=== PATIENT | female | born 1950 | race Caucasian/White ===

== ENCOUNTER 2018-07-10 11:48 | Emergency (ER) | payer MEDICARE, BC ==
[2018-07-10 11:57] VITALS: BP 140/84
--- NOTE | 2018-07-10 12:36 | UC ---
Skin Complaint HPI - HPI Summary HPI Summary: 2 DAYS AGO PATIENT FELT WHAT SHE THOUGHT WAS A MOLE ON HER RIGHT HIP. TODAY HER LOOKED AT IT AND STATED IT WAS A TICK. PATIENT IS HERE FOR REMOVAL. IT IS ENGORGED. - History of Current Complaint Chief Complaint: [facility] Time Seen by Provider: 07/10/18 12:15 Stated Complaint: TICK ON BOTTOM Hx Obtained From: Patient Onset/Duration: Lasting Days, Still Present Skin Exposure Onset/Duration: Days Ago Timing: Constant Onset Severity: Mild Current Severity: Mild Pain Intensity: 0 Pain Scale Used: 0-10 Numeric Location: Discrete - RIGHT HIP Character: Redness Aggravating Factor(s): Nothing Alleviating Factor(s): Nothing - Allergy/Home Medications Allergies/Adverse Reactions: Allergies Allergy/AdvReac Type Severity Reaction Status Date / Time No Known Allergies Allergy Verified 07/10/18 11:57 PMH/Surg Hx/FS Hx/Imm Hx Endocrine History: Hypothyroidism Other Cancer History: THYROID CANCER - Surgical History Surgical History: Yes Surgery Procedure, Year, and Place: THYROIDECTOMY (FULL) ,HYSTERECTOMY - Social History Alcohol Use: Occasionally Substance Use Type: None Smoking Status (MU): Never Smoked Tobacco - Immunization History Most Recent Tetanus Shot: September 2011 Review of Systems All Other Systems Reviewed And Are Negative: Yes Constitutional: Positive: Negative Skin: Positive: Other - TICK ATTACHED RIGHT HIP Respiratory: Positive: Negative Cardiovascular: Positive: Negative Gastrointestinal: Positive: Negative Musculoskeletal: Positive: Negative Neurological: Positive: Negative Physical Exam Triage Information Reviewed: Yes Appearance: Well-Appearing, No Pain Distress, Well-Nourished Vital Signs: Initial Vital Signs Temp 98.7 F 07/10/18 11:50 Pulse 75 07/10/18 11:50 Resp 18 07/10/18 11:50 BP 140/84 07/10/18 11:50 Pulse Ox 100 07/10/18 11:50 Vital Signs Reviewed: Yes Eyes: Positive: Conjunctiva Clear ENT: Positive: Hearing grossly normal Neck: Positive: Supple Respiratory: Positive: No respiratory distress, No accessory muscle use Cardiovascular: Positive: Pulses Normal Abdomen Description: Positive: Soft Musculoskeletal: Positive: No Edema Neurological: Positive: Alert Psychological: Positive: Age Appropriate Behavior Skin: Positive: Other - ENGORGED DEER TICK ATTACHED TO RIGHT HIP Course/Dx - Course Course Of Treatment: LYME DISEASE PEP PRESCRIBED TODAY (DOXY 200MG X 1). ENGORGED TICK REMOVED FROM RIGHT HIP BY MD WITHOUT DIFFICULTY USING A TICK TWISTER. COUNSELED PATIENT EXTENSIVELY ON RISKS OF DEVELOPING LYME DISEASE. KEEP THE AREA CLEAN AND BE VIGILANT OF SYMPTOMS OVER THE NEXT 4-6 WEEKS. - Diagnoses Provider Diagnosis: Tick bite with tick attached for 8 hours or longer Discharge - Sign-Out/Discharge Documenting (check all that apply): Patient Departure All imaging exams completed and their final reports reviewed: No Studies - Discharge Plan Condition: Stable Disposition: HOME Prescriptions: Doxycycline Monohydrate 2 cap PO ONCE #2 cap Patient Education Materials: Tick Bite (ED) Referrals: Dinesh Zimmerman MD [Primary Care Provider] - If Needed Additional Instructions: TICK BITE PROPHYLAXIS You received a prescription for 200mg of doxycycline for prophylaxis against Lyme disease. The Infectious Disease Society of [place] (IDSA) does not generally recommend antimicrobial prophylaxis for prevention of Lyme disease after a recognized tick bite. However, in areas that are highly endemic for Lyme disease, a single dose of doxycycline may be offered to adult patients (200 mg) who are not and to children older than 8 years of age (4 mg/kg up to a maximum dose of 200 mg) when all of the following circumstances exist: CRITERIA FOR RECEIVING PROPHYLACTIC TREATMENT FOR LYME DISEASE 1) TICK ATTACHED FOR AT LEAST 36 HRS 2) TICK IS AN ADULT OR [place] DEER TICK 3) YOU LIVE IN AN AREA WHERE LYME DISEASE IS PREVALENT (i.e., [place], [place], [place] , [place], [place], [place], [place], [place], [place], [place], [place], [place]) 4) YOU HAVE NO CONTRAINDICATION TO THE MEDICATION (DOXYCYCLINE) 5) PROPHYLAXIS IS BEGUN WITHIN 72 HRS OF TICK REMOVAL YOUR CHANCES OF DEVELOPING LYME DISEASE FROM THIS TICK ARE SMALL. HOWEVER, 1 TICK MEANS THERE MAY HAVE BEEN OTHER TICKS OF WHICH YOU WEREN'T AWARE. SO BE VIGILANT OF YOUR SYMPTOMS AND DON'T HESITATE TO GET SEEN AGAIN IF YOU DEVELOP UNEXPLAINED FEVER, HEADACHE, JOINT PAIN, BODY ACHES, RASH OR ANY OTHER CONCERNING SYMPTOMS. Antibiotic treatment following a tick bite is not recommended as a means to prevent anaplasmosis, babesiosis, ehrlichiosis, or [place] spotted fever. There is no evidence this practice is effective, and it may simply delay onset of disease. Instead, persons who experience a tick bite should be alert for symptoms suggestive of tickborne illness and consult a physician if fever, rash, headache or other symptoms of concern develop. - [place] Disposition and Condition Condition: STABLE Disposition: Home
== END 2018-07-10 12:35 | disposition home or self-care (01) ==
LOC: UCEAST 11:48
DX: S70.261A Insect bite (nonvenomous), right hip, initial encounter (principal); W57.XXXA Bitten or stung by nonvenomous insect and other nonvenomous arthropods, initial encounter; Y92.89 Other specified places as the place of occurrence of the external cause; E03.9 Hypothyroidism, unspecified; Z85.850 Personal history of malignant neoplasm of thyroid
CPT/HCPCS: 99212; G0463

== ENCOUNTER 2023-02-03 13:08 | Observation (INO) ==
[~2023-02-03 13:08] MED LIST: Buffered Lidocaine 1% SYRIN 1 ml INTRADERM ONE; HYDROmorphone 1 MG/1 ML SYRINGE IV PRN; Lactated Ringers 1000 ml BAG 1,000 ML IV SCH; Lidocaine 2% PF 5 ML VIAL ONE; Naloxone 0.4 mg VIAL 0.4 mg/ml 1 ml VIAL IV PRN; Ondansetron 4 mg VIAL 2 MG/ML 2 ml VIAL IV PRN; Phenylephrine IV 10 MG/ML 1 ml VIAL ONE; Propofol 10 MG/ML 20 ML BTL ONE; Rocuronium 50 mg VIAL 10 mg/ml 5 ml VIAL (50 mg) ONE; fentaNYL 100 mcg/2 ml 50 MCG/ML VIAL IV PRN; fentaNYL 250 mcg/5 ml 50 MCG/ML 5 ml VIAL (250 MCG) ONE
[2023-02-03] MEDS ORDERED: ceFAZolin 2 GM PREMIX 2 GM/50 ML BAG ONE (13:43)
[2023-02-03] MEDS ORDERED: Midazolam 2 mg/2 ml VIAL 1 mg/ml 2 ml VIAL (2 mg) ONE ×2 (16:22→17:55)
[2023-02-03] MEDS ORDERED: Propofol 10 MG/ML 20 ML BTL ONE (17:55)
[2023-02-03] MEDS ORDERED: Lidocaine 2% PF 5 ML VIAL ONE (17:55)
[2023-02-03] MEDS ORDERED: Ondansetron 4 mg VIAL 2 MG/ML 2 ml VIAL ONE (17:55)
[2023-02-03] MEDS ORDERED: Phenylephrine IV 10 MG/ML 1 ml VIAL ONE (17:55)
[2023-02-03] MEDS ORDERED: Dexamethasone IV 4 MG/ML VIAL 1 ml VIAL ONE (17:55)
[2023-02-03] MEDS ORDERED: fentaNYL 100 mcg/2 ml 50 MCG/ML VIAL ONE (17:55)
[2023-02-03] MEDS ORDERED: Rocuronium 50 mg VIAL 10 mg/ml 5 ml VIAL (50 mg) ONE (17:59)
[2023-02-03] MEDS ORDERED: ROPIVACAINE 5 MG/ML 30 ML BTL (0.5%) ONE (18:04)
[2023-02-03] MEDS ORDERED: Lidocaine 1% w EPI 1:100,000 MDV 20 ML VIAL ONE (20:00)
[2023-02-03] MEDS ORDERED: Bupivacaine 0.5% SDV PF 30ML VIAL ONE (20:00)
[2023-02-03] MEDS ORDERED: Acetaminophen IV 1 GM/100ML 1,000 MG/100 ML BAG IV PRN (20:32)
[2023-02-03] MEDS ORDERED: Ondansetron ODT 4 mg TAB 4 MG TAB PO PRN (22:59)
[2023-02-03] MEDS ORDERED: Lactated Ringers 1000 ml BAG 1,000 ML IV SCH (22:59)
[2023-02-03] MEDS ORDERED: Ondansetron 4 mg VIAL 2 MG/ML 2 ml VIAL IV PRN (22:59)
[2023-02-03] MEDS ORDERED: Morphine 2 MG/ML SYRINGE IV PRN (22:59)
[2023-02-03] MEDS: Carbidopa/Levodop 25/100 MG TAB PO SCH (23:26)
[2023-02-04] MEDS: Carbidopa/Levodop 25/100 MG TAB PO SCH (07:27)
[2023-02-04] MEDS ORDERED: Magnesium Hydroxide LIQ 30 ML UDC PO SCH (09:00)
[2023-02-04] MEDS ORDERED: Naloxone 0.4 mg VIAL 0.4 mg/ml 1 ml VIAL IV PRN (09:18)
[2023-02-04] MEDS ORDERED: HYDROmorphone 1 MG/1 ML SYRINGE IV PRN (09:18)
[2023-02-04] MEDS ORDERED: Ondansetron 4 mg VIAL 2 MG/ML 2 ml VIAL IV PRN (09:18)
[2023-02-04] MEDS ORDERED: Propofol 10 MG/ML 20 ML BTL ONE (09:21)
[2023-02-04] MEDS ORDERED: Lidocaine 2% PF 5 ML VIAL ONE (09:21)
[2023-02-04] MEDS ORDERED: Dexamethasone IV 4 MG/ML VIAL 1 ml VIAL ONE (09:21)
[2023-02-04] MEDS ORDERED: Bupivacaine 0.5% SDV PF 30ML VIAL ONE (09:32)
[2023-02-04] MEDS ORDERED: Dexmedetomidine 200 mcg/2 ml 2 ml VIAL (200 mcg) ONE (09:33)
[2023-02-04] MEDS ORDERED: ceFAZolin 2 GM PREMIX 2 GM/50 ML BAG ONE (10:02)
[2023-02-04] MEDS ORDERED: Ondansetron 4 mg VIAL 2 MG/ML 2 ml VIAL ONE (12:51)
[2023-02-04 18:25] VITALS: BP 126/73
== END 2023-02-04 15:23 | disposition home or self-care (01) ==
LOC: OR 13:08 → INTOOBSV 22:41 → SSU 22:41
PROVIDERS: ADMIT Orthopaedic Surgery Sports Medicine; ATTEND Orthopaedic Surgery Sports Medicine

== ENCOUNTER 2023-11-21 22:15 | Inpatient (IN) ==
[2023-11-22 00:25] LABS: ABS Lymphocytes 0.5 10^3/uL (1.0-4.8); ABS Monocytes 0.8 10^3/uL (0.0-0.9); ABS Neutrophils 9.4 10^3/uL (1.5-7.6); Hematocrit 32.5 % (35-45); Hemoglobin 10.9 g/dL (11.5-14.3); Lymphocyte % 4.6 %; Mean Corpuscular Hemoglobin 31.3 pg (27-33); Mean Corpuscular Hgb Conc 33.6 g/dL (31-36); Mean Corpuscular Volume 93.1 fL (80-97); Mean Platelet Volume 6.9 fL (7.5-11.2); Platelet Count 225 10^3/uL (150-450); Red Blood Count 3.49 10^6/uL (3.63-4.92); Red Cell Distribution Width 13.2 % (12-17); White Blood Count 10.7 10^3/uL (3.8-11.8)
[2023-11-22 01:14] LABS: INR 1.31 (0.85-1.14)
[2023-11-22 01:16] LABS: Albumin 3.9 g/dL (3.2-5.2); Albumin/Globulin Ratio 1.9 (1-3); C Reactive Protein 145.86 mg/L (<8.01); Calcium 8.7 mg/dL (8.6-10.3); Creatinine, Serum 0.61 mg/dL (0.51-0.95); Globulin 2.1 g/dL (2-4); Magnesium 1.9 mg/dL (1.9-2.7); Potassium 3.3 mmol/L (3.5-5.0); Total Bilirubin 0.4 mg/dL (0.2-1.0); eGFR CKD-EPI 93.2 (>60)
[2023-11-22 02:34] LABS: High Sensitivity Troponin 1 Hr 19 pg/mL (<15)
[2023-11-22] MEDS ORDERED: Sulfur Hexaflouride MICROSPHR 25 MG VIAL IV PRN (04:01)
[2023-11-22] MEDS: Iodixanol (CONTRAST) 320 MG/ML 100 ML SDV IV ONE (04:34)
[2023-11-22] MEDS: cefTRIAXone 1 gm/50 mL D5W 1 GM/50 ML BAG IV ONE (05:11)
[2023-11-22] MEDS: Acetaminophen IV 1 GM/100ML 1,000 MG/100 ML BAG IV ONE (05:43)
[2023-11-22 06:10] LABS: % Iron Saturation 9 % (15-55); .Transferrin 162 mg/dL (203-362); Cholesterol 134 mg/dL; HDL Cholesterol 52.8 mg/dL; Iron < 20 ug/dL (50-212); LDL Cholesterol 69 mg/dL; Total Iron Binding Capacity 227 mcg/dL (250-450); Transferrin 162 mg/dL (203-362); Triglycerides 60 mg/dL; Unsaturated Iron Binding 207 ug/dL
[2023-11-22] MEDS: Azithromycin 500 mg/250 ml NS 500 MG/250 ML BAG IVPB SCH (06:25)
[2023-11-22 06:29] LABS: Ferritin 109.5 ng/mL (11-307)
[2023-11-22] MEDS: KCL 20 MEQ/100 ML IVPREMIX 20 MEQ/100 ML BAG IV SCH (06:54)
[2023-11-22] MEDS: Carbidopa/Levodop CR 50/200 TAB.CR PO SCH (08:45)
[2023-11-22] MEDS: MIRABEGRON 25 MG PO SCH (10:00)
[2023-11-22 10:54] LABS: Urine Appearance Extra Turbid; Urine Bilirubin Negative (Negative); Urine Blood 1+ (Negative); Urine Color Yellow; Urine Glucose Negative (Negative); Urine Ketones 1+ (Negative); Urine Nitrite Negative (Negative); Urine Protein 1+ (>=30 mg/dL) (Negative); Urine Specific Gravity 1.034 (1.002-1.030); Urine Urobilinogen Negative (Negative)
[2023-11-22 11:04] LABS: Urine Bacteria Absent /HPF (Absent); Urine Red Blood Cell 3+(>10/hpf) /HPF (0-Trace); Urine Transitional Epithelial Present /HPF (Absent); Urine White Blood Cell 3+(>20/hpf) /HPF (0-Trace)
[2023-11-22] MEDS: Cholecalciferol (VIT D3) 1,000 unit TAB PO SCH (15:19)
[2023-11-23] MEDS: Azithromycin 500 mg/250 ml NS 500 MG/250 ML BAG IVPB SCH (05:00)
[2023-11-23] MEDS ORDERED: cefTRIAXone 1 gm/50 mL D5W 1 GM/50 ML BAG IV SCH (06:00)
[2023-11-23] MEDS: cefTRIAXone 1 gm/50 mL D5W 1 GM/50 ML BAG IV SCH (06:10)
[2023-11-23 06:27] LABS: ABS Lymphocytes 0.7 10^3/uL (1.0-4.8); ABS Monocytes 0.7 10^3/uL (0.0-0.9); ABS Neutrophils 8.8 10^3/uL (1.5-7.6); ABS Nucleated RBC 0.01 10^3/ul; Eosinophil % 0.1 %; Hematocrit 40.7 % (35-45); Hemoglobin 13.1 g/dL (11.5-14.3); Lymphocyte % 6.5 %; Mean Corpuscular Hemoglobin 30.8 pg (27-33); Mean Corpuscular Hgb Conc 32.2 g/dL (31-36); Mean Corpuscular Volume 95.7 fL (80-97); Mean Platelet Volume 7.4 fL (7.5-11.2); Nucleated Red Blood Cells % 0.1 %/100WBC (0.0-0.8); Platelet Count 172 10^3/uL (150-450); Red Blood Count 4.26 10^6/uL (3.63-4.92); Red Cell Distribution Width 13.8 % (12-17); White Blood Count 10.2 10^3/uL (3.8-11.8)
[2023-11-23 07:09] LABS: Calcium 8.9 mg/dL (8.6-10.3); Creatinine, Serum 0.53 mg/dL (0.51-0.95); Potassium 3.9 mmol/L (3.5-5.0); eGFR CKD-EPI 96.4 (>60)
[2023-11-23] MEDS: MIRABEGRON 25 MG PO SCH (07:58)
[2023-11-23] MEDS: KCL 10 MEQ/50 ML IVPREMIX 10 MEQ/50 ML BAG IV ONE (08:41)
[2023-11-23 10:18] LABS: TSH Ultra Thyroid Stim Horm 5.5 mcIU/mL (0.34-5.60)
[2023-11-23] MEDS: Enoxaparin 40 MG/0.4 ML SYR SUBCUT SCH (11:46)
[2023-11-23 12:07] LABS: RBC Parasite Smear No Parasites Seen (No Parasite)
[2023-11-23 13:08] LABS: Creatine Kinase 124 U/L (10-223)
[2023-11-24 04:59] LABS: Hematocrit 32.9 % (35-45); Mean Corpuscular Hemoglobin 30.6 pg (27-33); Mean Corpuscular Hgb Conc 33.4 g/dL (31-36); Mean Corpuscular Volume 91.8 fL (80-97); Mean Platelet Volume 7.2 fL (7.5-11.2); Platelet Count 197 10^3/uL (150-450); Red Blood Count 3.58 10^6/uL (3.63-4.92); Red Cell Distribution Width 13.3 % (12-17); White Blood Count 8.9 10^3/uL (3.8-11.8)
[2023-11-24 05:38] LABS: Calcium 8.1 mg/dL (8.6-10.3); Creatinine, Serum 0.44 mg/dL (0.51-0.95); Magnesium 1.8 mg/dL (1.9-2.7); Potassium 3.5 mmol/L (3.5-5.0); eGFR CKD-EPI 100.8 (>60)
[2023-11-24] MEDS: Potassium Chlor 20 meq TAB.ER PO ONE (08:48)
[2023-11-24] MEDS: Magnesium Sulfate 2 gm BAG 2 GM/50 ML BAG IVPB ONE (08:56)
[2023-11-24] MEDS: Potassium EFFERVES 25 meq TAB PO ONE (10:15)
[2023-11-24] MEDS: Magnesium Sulfate IV 1GM/100ML 1 GM/100 ML BAG IV ONE (10:38)
[2023-11-24] MEDS: Iodixanol (CONTRAST) 320 MG/ML 100 ML SDV IV ONE (16:37)
[2023-11-25 05:35] LABS: ABS Eosinophils 0.1 10^3/uL (0.0-0.5); ABS Lymphocytes 0.7 10^3/uL (1.0-4.8); ABS Monocytes 0.7 10^3/uL (0.0-0.9); ABS Neutrophils 7.4 10^3/uL (1.5-7.6); ABS Nucleated RBC 0.01 10^3/ul; Eosinophil % 1.3 %; Hematocrit 32.8 % (35-45); Hemoglobin 10.9 g/dL (11.5-14.3); Lymphocyte % 8.4 %; Mean Corpuscular Hemoglobin 30.6 pg (27-33); Mean Corpuscular Hgb Conc 33.3 g/dL (31-36); Mean Corpuscular Volume 91.9 fL (80-97); Mean Platelet Volume 7.7 fL (7.5-11.2); Nucleated Red Blood Cells % 0.1 %/100WBC (0.0-0.8); Platelet Count 215 10^3/uL (150-450); Red Blood Count 3.57 10^6/uL (3.63-4.92); Red Cell Distribution Width 13.8 % (12-17); White Blood Count 8.9 10^3/uL (3.8-11.8)
[2023-11-25 06:25] LABS: Calcium 7.9 mg/dL (8.6-10.3); Creatinine, Serum 0.43 mg/dL (0.51-0.95); Potassium 3.6 mmol/L (3.5-5.0); eGFR CKD-EPI 101.4 (>60)
[2023-11-25] MEDS: Potassium Chlor 20 meq TAB.ER PO ONE (08:40)
[2023-11-25] MEDS: Carbidopa/Levodop 25/100 MG TAB PO SCH (16:35)
[2023-11-26] MEDS: Carbidopa/Levodop CR 50/200 TAB.CR PO SCH (16:11)
[2023-11-26] MEDS: Carbidopa/Levodop 25/100 MG TAB PO SCH (16:13)
[2023-11-27] MEDS ORDERED: cefTRIAXone 1 gm/50 mL D5W 1 GM/50 ML BAG IV SCH (06:00)
[2023-11-27] MEDS: cefTRIAXone 1 gm/50 mL D5W 1 GM/50 ML BAG IV SCH (06:19)
[2023-11-27] MEDS: Polyethylene Glycol 3350 17 GM PACKET PO PRN (15:09)
[2023-11-28 05:56] LABS: Hematocrit 34.2 % (35-45); Hemoglobin 11.4 g/dL (11.5-14.3); Mean Corpuscular Hemoglobin 30.4 pg (27-33); Mean Corpuscular Hgb Conc 33.4 g/dL (31-36); Mean Corpuscular Volume 90.9 fL (80-97); Mean Platelet Volume 7.1 fL (7.5-11.2); Platelet Count 404 10^3/uL (150-450); Red Blood Count 3.77 10^6/uL (3.63-4.92); Red Cell Distribution Width 13.8 % (12-17); White Blood Count 9.9 10^3/uL (3.8-11.8)
[2023-11-28 06:12] VITALS: BP 122/72
[2023-11-28 06:18] LABS: Calcium 8.4 mg/dL (8.6-10.3); Creatinine, Serum 0.42 mg/dL (0.51-0.95); Potassium 3.7 mmol/L (3.5-5.0); eGFR CKD-EPI 101.9 (>60)
== END 2023-11-28 09:35 | DRG 193 ==
LOC: EDHOLD 22:15 → ED 22:15 → SUATTDRO 11-22 04:01 → MEDTELE 11-22 10:00
PROVIDERS: ADMIT Student in an Organized Health Care Education/Training Program; ATTEND Hospitalist

== ENCOUNTER 2023-11-27 13:44 | Inpatient (IN) ==
[2023-11-28] MEDS: Enoxaparin 40 MG/0.4 ML SYR SUBCUT SCH (12:58)
[2023-11-28] MEDS: Carbidopa/Levodop CR 50/200 TAB.CR PO SCH (12:58)
[2023-11-28] MEDS: Carbidopa/Levodop 25/100 MG TAB PO SCH (12:58)
[2023-11-28] MEDS: Magnesium Hydroxide LIQ 30 ML UDC PO PRN (20:26)
[2023-11-28] MEDS ORDERED: Sodium Phosphate ADULT ENEMA 133 ML BTL PR PRN (20:30)
[2023-11-29] MEDS: cefTRIAXone 1 gm/50 mL D5W 1 GM/50 ML BAG IV SCH (05:39)
[2023-11-29 06:03] LABS: ABS Basophils 0.1 10^3/uL (0.0-0.1); ABS Eosinophils 0.3 10^3/uL (0.0-0.5); ABS Lymphocytes 1.2 10^3/uL (1.0-4.8); ABS Neutrophils 9.1 10^3/uL (1.5-7.6); Eosinophil % 2.3 %; Hemoglobin 10.6 g/dL (11.5-14.3); Lymphocyte % 10.6 %; Mean Corpuscular Hgb Conc 34.2 g/dL (31-36); Mean Corpuscular Volume 90.7 fL (80-97); Mean Platelet Volume 6.8 fL (7.5-11.2); Platelet Count 423 10^3/uL (150-450); Red Blood Count 3.42 10^6/uL (3.63-4.92); Red Cell Distribution Width 13.5 % (12-17); White Blood Count 11.7 10^3/uL (3.8-11.8)
[2023-11-29 06:28] LABS: Albumin 3.3 g/dL (3.2-5.2); Albumin/Globulin Ratio 1.4 (1-3); Calcium 8.5 mg/dL (8.6-10.3); Creatinine, Serum 0.49 mg/dL (0.51-0.95); Globulin 2.3 g/dL (2-4); Potassium 3.9 mmol/L (3.5-5.0); Total Bilirubin 0.3 mg/dL (0.2-1.0); Total Protein 5.6 g/dL (6.4-8.9); eGFR CKD-EPI 98.2 (>60)
[2023-11-29] MEDS: CMC:Mirabegron 25 mg ER TAB (NF) PO SCH (10:29)
[2023-11-29] MEDS: Aspirin EC 81 mg TAB.EC (enteric coated) PO SCH (10:29)
[2023-11-29] MEDS: Cholecalciferol (VIT D3) 1,000 unit TAB PO SCH (10:29)
[2023-11-29] MEDS: Carbidopa/Levodop 25/100 MG TAB PO ONE (19:15)
[2023-11-29] MEDS: Senna TAB 8.6 mg TAB PO PRN (19:34)
[2023-12-06 07:34] LABS: ABS Basophils 0.1 10^3/uL (0.0-0.1); ABS Eosinophils 0.1 10^3/uL (0.0-0.5); ABS Lymphocytes 1.7 10^3/uL (1.0-4.8); ABS Monocytes 0.5 10^3/uL (0.0-0.9); ABS Neutrophils 4.4 10^3/uL (1.5-7.6); ABS Nucleated RBC 0.01 10^3/ul; Eosinophil % 1.9 %; Hematocrit 33.1 % (35-45); Hemoglobin 10.9 g/dL (11.5-14.3); Mean Corpuscular Hemoglobin 31.5 pg (27-33); Mean Corpuscular Hgb Conc 32.9 g/dL (31-36); Mean Corpuscular Volume 95.7 fL (80-97); Mean Platelet Volume 6.9 fL (7.5-11.2); Nucleated Red Blood Cells % 0.2 %/100WBC (0.0-0.8); Platelet Count 257 10^3/uL (150-450); Red Blood Count 3.46 10^6/uL (3.63-4.92); Red Cell Distribution Width 14.9 % (12-17); White Blood Count 6.9 10^3/uL (3.8-11.8)
[2023-12-06 07:53] LABS: ALT 9 U/L (7-52); Albumin 3.6 g/dL (3.2-5.2); Albumin/Globulin Ratio 1.4 (1-3); Alkaline Phosphatase 73 U/L (35-149); Anion Gap 9 mmol/L (2-16); Blood Urea Nitrogen 25 mg/dL (6-24); CO2 Carbon Dioxide 24 mmol/L (22-32); Calcium 8.4 mg/dL (8.6-10.3); Chloride 107 mmol/L (101-111); Creatinine, Serum 0.54 mg/dL (0.51-0.95); Globulin 2.5 g/dL (2-4); Glucose 90 mg/dL (70-100); Sodium 140 mmol/L (135-145); Total Bilirubin 0.5 mg/dL (0.2-1.0); Total Protein 6.1 g/dL (6.4-8.9)
[2023-12-06 09:42] LABS: Potassium Redraw 4.2 mmol/L (3.5-5.0)
[2023-12-11 05:39] VITALS: BP 140/74
== END 2023-12-11 13:10 | disposition home or self-care (01) | DRG 56 ==
LOC: PMRU 11-28 11:03
PROVIDERS: ADMIT Physical Medicine & Rehabilitation; ATTEND Physical Medicine & Rehabilitation